=== PATIENT | male | born 1970 | race Caucasian/White ===

== ENCOUNTER 2022-09-24 06:35 | Emergency (ER) | payer OTHER ==
[~2022-09-24] VITALS: Ht 190.5 cm; Wt 136.1 kg
[2022-09-24 06:45] VITALS: BP 156/90
[2022-09-24] MEDS ORDERED: KETOROLAC 30 MG/ML VIAL IM ONE ×2 (07:25→08:40)
[2022-09-24] MEDS ORDERED: HYDROcodone/APAP 5/325 MG 1 TAB TAB PO ONE ×2 (07:25→08:40)
[2022-09-24] MEDS ORDERED: DEXAMETHASONE 10 MG/ML VIAL PO ONE ×2 (07:25→08:40)
[2022-09-24] MEDS ORDERED: AMOX-1230 PO (07:54)
[2022-09-24] MEDS ORDERED: NAPR-54 PO (07:54)
[2022-09-24] MEDS ORDERED: ACET-8386 PO (07:54)
--- NOTE | 2022-09-24 09:09 | NUR ---
PT LEFT W/O DC PAPERS
--- NOTE | 2022-09-24 09:09 | NUR ---
called to medicate no response
== END 2022-09-24 09:09 | disposition home or self-care (01) ==
LOC: MED 06:35
DX: K04.7 Periapical abscess without sinus (principal); Z98.890 Other specified postprocedural states
CPT/HCPCS: 99283; J1100; J1885